=== PATIENT | female | born 1950 | race Caucasian/White ===

== ENCOUNTER 2017-11-03 12:32 | Emergency (ER) | payer MEDICARE, OTHER ==
[2017-11-03 13:09] VITALS: BP 120/62
--- NOTE | 2017-11-03 13:11 | UC ---
UC General HPI - HPI Summary HPI Summary: pt c/o uti. describes as a low back ache and urine turning red since last pm. hx uti's and this is how they present. no fever or abdominal pain.onset last pm. tx with cranberry juice which is helping but not resolving the issue. - History of Current Complaint Stated Complaint: URINARY Time Seen by Provider: 11/03/17 12:58 Hx Obtained From: Patient Hx Last Menstrual Period: n/a Onset/Duration: Gradual Onset Timing: Constant Associated Signs & Symptoms: Negative: Abdominal Pain, Fever - Allergy/Home Medications Allergies/Adverse Reactions: Allergies Allergy/AdvReac Type Severity Reaction Status Date / Time No Known Allergies Allergy Verified 11/03/17 12:58 Home Medications: Home Medications Aspirin 81 mg CHEW TAB* [Aspirin Low Dose TAB*] 81 mg PO DAILY 11/03/17 [ History Confirmed 11/03/17] Ezetimibe TAB* [Zetia TAB*] 10 mg PO DAILY 11/03/17 [History Confirmed 11/03/17] Latanoprost 0.005%* [Xalatan 0.005%*] 1 drop BOTH EYES QPM 11/03/17 [History Confirmed 11/03/17] amLODIPine TAB* [Norvasc 5 mg TAB*] 5 mg PO DAILY 11/03/17 [History Confirmed ] PMH/Surg Hx/FS Hx/Imm Hx - Additional Past Medical History Additional PMH: glaucoma Endocrine History: Hyperthyroidism Cardiovascular History: Hypertension - Surgical History Surgical History: Yes Surgery Procedure, Year, and Place: 05/2015 pacemaker and stent - Family History Known Family History: Positive: None - Social History Occupation: Retired Alcohol Use: Occasionally Substance Use Type: None Smoking Status (MU): Former Smoker - Immunization History Vaccination Up to Date: Yes Review of Systems Constitutional: Negative Skin: Negative Eyes: Negative ENT: Negative Respiratory: Negative Cardiovascular: Negative Gastrointestinal: Negative Genitourinary: Hematuria, Other - low back ache Motor: Negative Neurovascular: Negative Musculoskeletal: Negative Neurological: Negative Psychological: Negative Is Patient Immunocompromised?: No All Other Systems Reviewed And Are Negative: Yes Physical Exam Triage Information Reviewed: Yes Appearance: Well-Appearing Vital Signs Reviewed: Yes Eyes: Positive: Conjunctiva Clear ENT: Positive: Normal ENT inspection Neck: Positive: Supple, Nontender, No Lymphadenopathy Respiratory: Positive: Lungs clear, Normal breath sounds Cardiovascular: Positive: RRR, No Murmur Abdomen Description: Positive: Nontender, No Organomegaly, Soft. Negative: CVA Tenderness (R), CVA Tenderness (L), Distended, Guarding Bowel Sounds: Positive: Present Musculoskeletal: Positive: ROM Intact Neurological: Positive: Alert Psychological: Positive: Age Appropriate Behavior Skin Exam: Normal Diagnostics - Laboratory Diagnostic Studies Completed/Ordered: u/a = positive for blood and protein. urince culture is pending. Course/Dx - Course Course Of Treatment: NON TOXIC, NO ACUTE ABDOMEN. NO HX INJURY OR ISSUES WITH BRUISING/BLEEDING. HX UTI'S WITH SIMILAR S/S'S. WILL TX FOR POSSIBLE UTI BUT NEED FOR CLOSE F/U STRESSED. - Differential Dx - Multi-Symptom Provider Diagnoses: HEMATURIA. POSSIBLE UTI Discharge - Sign-Out/Discharge Documenting (check all that apply): Discharge/Admit/Transfer - Discharge Plan Condition: Stable Disposition: HOME Prescriptions: Cephalexin CAP* [Keflex CAP*] 500 mg PO TID #21 cap Patient Education Materials: Hematuria (ED) Referrals: No Primary Care Phys,NOPCP [Primary Care Provider] - Additional Instructions: FOLLOW UP WITH YOUR PRIMARY CARE IN [place] IN 2 WEEKS FOR A RECHECK. GO TO [facility] IMMEDIAT[facility] FOR ANY WORSENING OR IF NOT IMPROVED IN 2-3 DAYS. - Billing Disposition and Condition Condition: STABLE Disposition: Home
== END 2017-11-03 13:32 | disposition home or self-care (01) ==
LOC: UCCORT 12:32
DX: R31.9 Hematuria, unspecified (principal); Z87.440 Personal history of urinary (tract) infections
CPT/HCPCS: 81003; 87086; 99212; G0463